=== PATIENT | female | born 1985 | race Hispanic/Latino ===

== ENCOUNTER 2018-05-12 14:52 | Inpatient (IN) | payer MEDICAID ==
[2018-05-12 16:19] LABS: Bacteria,Urine 1+ /HPF (Negative); Bilirubin,Urine NEG (Negative); Blood,Urine NEG (Negative); Color,Urine Yellow (Yellow); Mucus,Urine FEW /HPF; Protein,Urine <15 mg/dL mg/dL (Negative); Urobilinogen,Urine < 2.0 mg/dL (<2.0)
[2018-05-12] MEDS ORDERED: EMLA TP PRN (16:54)
[2018-05-12] MEDS ORDERED: PEPCID IV ONE (16:54)
[2018-05-12] MEDS ORDERED: REGLAN IV ONE (16:54)
[2018-05-12] MEDS ORDERED: BICITRA PO ONE (16:54)
[2018-05-12] MEDS ORDERED: ANCEF/STERILE WATER 2 GM/20 ML 0 GM/0 ML SYRINGE IV ONE (16:58)
[2018-05-12] MEDS ORDERED: REGLAN ONE (16:58)
[2018-05-12] MEDS ORDERED: PITOCin/NS 20 UNIT/1000ML DRIP 40,000 MILLIUNITS/2,000 ML BAG IV ONE (16:58)
[2018-05-12] MEDS ORDERED: ceFAZolin 3 GM in NACL 0.9% 100 ML IV NR (17:00)
[2018-05-12] MEDS ORDERED: PITOCin/NS 20 UNIT/1000ML DRIP 20 UNITS/1,000 ML BAG IV SCH ×2 (17:00→21:09)
[2018-05-12] MEDS ORDERED: LACTATED RINGERS 1,000 ML IV SCH (17:00)
--- NOTE | 2018-05-12 17:03 | History and Physical Report ---
History of Present Illness Date of examination: 05/12/18 Chief complaint: leaking fluid and painful uterine ctx History of present illness: EDC Confirmation: 06/28/2018 Past History : 6 Term Births: 3 Premature Births: 2 Living Children: 4 Para: 5 Mult. Births: 0 Prev : 2 Prev. attempt? success x2+ Aborta: 0 Elect. Ab: 0 Spont. Ab: 0 Ectopics: 0 # 1 Delivery date: 2007 Weeks Gestation: 20 wk? labor: yes Delivery type: Comments: "some genetic problem" # 2 Delivery date: 01/23/2009 Weeks Gestation: 40 labor: no Delivery type: Anesthesia type: epidural Sex: Male weight: 8#5 Name: Kyaw Comments: stat c/s for NRFHT # 3 Delivery date: 07/22/2010 Weeks Gestation: 41 labor: no Delivery type: Anesthesia type: epidural Infant Sex: Female weight: 8#7 Name: Alyssa Comments: Repeat c/s # 4 Delivery date: 07/25/2011 Weeks Gestation: 40 labor: no Delivery type: Anesthesia type: epidural Infant Sex: Female weight: 7#5 Name: Maryann # 5 Delivery date: 02/03/2017 Weeks Gestation: unknown labor: yes Delivery type: Anesthesia type: epidural Sex: Female weight: 6#13 Past Medical History: grand mal seizure disorder, not on medication, unknown when last seizure occured "maybe as a toddler?" abnormal pap in 2007 Past Surgical History: c/s x2 ankle sx- pins in right ankle Past Medical History Surgery (Non-human resources assistant manager): c/s x2 ankle sx- pins in right ankle Abnormal PAP: negative MARCELO Exposure: negative Infertility: negative Uterine Anomaly: negative Uterine Surgery (not C/S): negative Other Gynecologic Problems: negative Family Hx: denies Social Hx: SAHM, lives with fiance and children denies ETOH, druc or tobacco use Infection History Hx of STD: none HIV Risk Eval: low risk Hepatitis B Risk Eval: low risk Personal hx. of genital herpes: no Partner hx. of genital herpes: no Rash, Viral, or Febrile illness since last LMP? no Varicella/Chicken Pox Status: Previous Disease TB Risk: no Genetic History Congenital Heart Defect: Mom: no Dad: no Ara Disease: Mom: no Dad: no Thalassemia Mom: no Dad: no Neural Tube Defect Mom: no Dad: no Down's Syndrome Mom: no Dad: no Nando-Sachs Mom: no Dad: no Sickle Cell Disease/Trait Mom: no Dad: no Hemophilia Mom: no Dad: no Muscular Dystrophy Mom: no Dad: no Cystic Fibrosis Mom: no Dad: no Mcfaddin Chorea Mom: no Dad: no Mental Retardation Mom: no Dad: no Fragile X Mom: no Dad: no Other Genetic/Chromosomal Disorder Mom: no Dad: no Child w/other defect Mom: yes Dad: no Comments: 20 week demise- unknown genetic defect Comments/Counseling: one biological child with ASD one of FOCs children with ASD Enviromental Exposures Enviromental Exposures Reviewed Xray Exposure: no Medication, drug, or alcohol use since LMP: no Chemical/Other Exposure: no Exposure to Cat Liter: no Hx of Parvovirus (Fifth Disease): no Occupational Exposure to Children: none Active Medications (reviewed today): None Past History Past Medical History: other (see HPI) Past Surgical History: other (see HPI) EXHIBIT DISPLAY REPRESENTATIVE History: other (see HPI) Family/Genetic History: other (see HPI) - Obstetrical History Expected Date of Delivery: 06/28/18 Actual Gestation: 33 Week(s) 2 Day(s) : 6 Para: 5 Hx # Term Pregnancies: 3 Number of Pregnancies: 2 Spontaneous Abortions: 0 Induced : 0 Number of Living Children: 4 Medications and Allergies Allergies Allergy/AdvReac Type Severity Reaction Status Date / Time No Known Allergies Allergy Unverified 05/12/18 15:42 Active Meds: Active Medications Citric Acid/Sodium Citrate (Bicitra) 30 ml PO ONCE ONE Stop: 05/12/18 16:55 Famotidine (Pepcid) 20 mg IV ONCE ONE Stop: 05/12/18 16:55 Cefazolin Sodium 3 gm/ Sodium (Chloride) 100 mls @ 100 mls/30 min IV PREOP NR; Protocol Lactated Ringer's (Lactated Ringers) 1,000 mls @ 2,250 mls/hr IV PREOP ALPHONSO Stop: 05/13/18 17:27 Oxytocin/Sodium Chloride (Pitocin/Ns 20 Unit/1000ml Drip) 20 units in 1,000 mls @ 0 mls/hr IV TITR ALPHONSO Lidocaine/Prilocaine (Emla) 1 applic TP ONCE PRN PRN Reason: for coombs catheter insertion Metoclopramide HCl (Reglan) 10 mg IV ONCE ONE Stop: 05/12/18 16:55 Review of Systems All systems: negative - Vital Signs Vital signs: Vital Signs Pulse BP 93 H 99/58 05/12/18 15:31 05/12/18 15:31 Temp Pulse Resp BP Pulse Ox 99.3 F 93 H 18 99/58 05/12/18 15:49 05/12/18 15:31 05/12/18 15:49 05/12/18 15:31 - Physical Exam Breasts: Positive: normal Cardiovascular: Regular rate Lungs: Positive: Clear to auscultation, Normal air movement Abdomen: Positive: normal appearance, soft Genitourinary (Female): Positive: normal external genitalia, normal perenium Vulva: both: normal Vagina: Positive: normal moisture Uterus: Positive: normal size, normal contour Anus/Rectum: Positive: normal perianal skin Extremities: Positive: normal Deep Tendon Reflex Grade: Normal +2 - Obstetrical FHR: category 1 Uterine Contraction Monitor Mode: External Cervical Dilatation: 5.5 Cervical Effacement Percentage: 80 station: -4 Uterine Contraction Frequency (min): 2-4 Uterine Contraction Pattern: Regular Uterine Tone Measurement Phase: Contraction Uterine Contraction Intensity: Mild Results All other labs normal. Assessment and Plan 33y/o @ 33+2 weeks, presented to triage with abd pain and leaking fluid. complicated by obesity and late care @ 25 weeks. EDC 06/28 established by 25wk u/s. Nitrazine +, regular ctx noted on toco, SVE 5-6/80/-4 - unable to palpate BOW during exam. Dr. Anand updated. orders to prepare for c/s. Last food or drink intake this morning. Pre-op orders initiated. NICU and anesthesia aware. - Patient Problems (1) 33 weeks gestation of Current Visit: Yes Status: Acute (2) labor Current Visit: Yes Status: Acute Qualifiers: labor trimester: third trimester labor delivery status: with delivery in third trimester Fetus number: single or unspecified fetus Qualified Code(s): O60.14X0 - labor third trimester with delivery third trimester, not applicable or unspecified (3) Previous section Current Visit: Yes Status: Acute (4) BMI 50.0-59.9, adult Current Visit: Yes Status: Acute (5) Rubella non-immune status, antepartum Current Visit: Yes Status: Acute Plan to address problem: MMR
[2018-05-12 17:33] LABS: Basophils % (Auto) 0.4 % (0.0-1.8); Eosinophils % (Auto) 0.1 % (0.0-4.3); Hematocrit 38.2 % (30.3-42.9); Hemoglobin 12.5 gm/dl (10.1-14.3); Lymphocytes % (Auto) 23.1 % (13.4-35.0); Mean Corpuscular HGB Conc 33 % (30-34); Mean Corpuscular Volume 91 fl (79-97); Monocytes # (Auto) 0.5 K/mm3 (0.0-0.8); Platelet Count 266 K/mm3 (140-440); Red Blood Count 4.18 M/mm3 (3.65-5.03); Red Cell Distribution Width 13.3 % (13.2-15.2)
--- NOTE | 2018-05-12 17:36 | Anesthesia Consultation ---
Anesthesia Consult and Med Hx Date of service: 05/12/18 - Airway Anesthetic Teeth Evaluation: Good ROM Head & Neck: Adequate Mental/Hyoid Distance: Adequate Mallampati Class: Class III Intubation Access Assessment: Possibly Difficult - Pulmonary Exam CTA: Yes - Cardiac Exam Cardiac Exam: RRR - Pre-Operative Health Status ASA Pre-Surgery Classification: ASA3 Proposed Anesthetic Plan: Spinal - Pulmonary Hx Asthma: No - Cardiovascular System Hx Hypertension: No - Central Nervous System Hx Seizures: Yes (as a child) Hx Psychiatric Problems: No - Endocrine Hx Renal Disease: No Hx Hypothyroidism: No Hx Hyperthyroidism: No - Hematic Hx Anemia: No Hx Sickle Cell Disease: No - Other Systems Hx Alcohol Use: No - Additional Comments Anesthesia Medical History Comments: morbid obesity
[2018-05-12] MEDS ORDERED: PHENERGAN PR PRN (17:37)
[2018-05-12] MEDS ORDERED: NARCAN 0.4 MG/1 ML IV PRN ×2 (17:37→21:09)
[2018-05-12] MEDS ORDERED: PHENERGAN PO PRN (17:37)
[2018-05-12] MEDS ORDERED: ZOFRAN IV PRN (17:37)
--- NOTE | 2018-05-12 17:37 | Anesthesia Day of Surgery ---
Anesthesia Day of Surgery - Day of Surgery Patient Examined: Yes Patient H&P Reviewed: Yes Patient is NPO: Yes
[2018-05-12] MEDS ORDERED: ANCEF/STERILE WATER 2 GM/20 ML 4 GM/40 ML SYRINGE IV ONE (17:47)
--- NOTE | 2018-05-12 17:53 | Event Note ---
Date: 05/12/18 Patient in active labor with previous section removed from to deliver by repeat section. Discussed plan with the patient patient agrees to proceed.Patient informed the risks of the surgery include bleeding possibly bleeding heavy enough to require blood transfusion, infection possible damage to bowel bladder ureter. All questions answered. Patient agrees to proceed
[2018-05-12] MEDS ORDERED: SUBLIMAZE ONE (17:54)
[2018-05-12] MEDS ORDERED: SODIUM CHLORIDE FLUSH SYRINGE 10 ML IV NR (18:00)
[2018-05-12] MEDS ORDERED: ANCEF/STERILE WATER 2 GM/20 ML IV ONE ×2 (18:04)
[2018-05-12] MEDS ORDERED: NEO SYNEPHRINE/NS Syringe(OR USE) IV ONE (18:22)
[2018-05-12] MEDS ORDERED: NACL 0.9% IR ONE (18:34)
[2018-05-12] MEDS ORDERED: WATER FOR IRRIG STERILE IR ONE (18:34)
--- NOTE | 2018-05-12 19:32 | Operative Report ---
Operative Report Operative Report: Date of procedure: 05/12/2018 Pre-operative diagnosis: Intrauterine at 33 weeks 2 days with prematur e labor and premature rupture of membranes. Previous section Post-operative diagnosis: Same plus very thin lower uterine segment Procedure name(s):. Repeat Low transverse section Surgeon: Lazaro Anand MD Regional Coordinator: Susanna Carrasco, certified nurse medical malpractice paralegal Anesthesia: Spinal EBL: 700 mL Complications: None Findings: Normal uterus with a very thin lower uterine segment. Amniotic fluid and to be seen through the lower uterine segment. ALL FUTURE PREGNANCIES SHOULD BE DELIVERD BY SECTION. Normal tubes bilaterally. Female infant weight 5 lbs. 0 oz. Apgars 8 at 1 minute and 9 at 5 minutes Specimen(s): Placenta Procedure: The patient was brought to the operating room. A spinal was placed without any complications. She was then placed in left lateral tilt. Prepped and draped in the usual sterile manner. After testing for adequate anesthesia level, a Pfannenstiel incision was made through her previous scar. This incision was taken down to the fascia. The fascia was then nicked in the midline. This incision was extended out laterally with Cade scissors. The fascia was then sharply and bluntly from the underlying rectus muscles. The rectus muscles were bluntly and sharply . The peritoneum was then entered with the flat folding machine operator's fingers. This incision was spread vertically with care not to damage the bladder below. The Ceasar self-retaining tractor was then placed without any difficulty. The bladder flap was then formed sharply and bluntly with Metzenbaum scissors. A transverse incision was made in lower uterine segment. This incision was extended laterally with the operators fingers. The amniotic sac was then entered bluntly with the flat folding machine operator's fingers. The infant was delivered from the vertex position. Bulb suction on the mother's abdomen. Cord was double clamped and cut. The infant was then passed to the nursery personnel who were in attendance. The above scores were given by the nursery personnel. The placenta was then bluntly removed. The uterus was then externalized and wiped clean the remaining products. The findings as noted above and the patient was told during the surgery that FUTURE pregnancies should be delivered by section. The uterine incision was closed in layers. The first incision was closed in a locking manner using 0 Vicryl. This was followed by two imbricating stitch also with 0 Vicryl. This closure was hemostatic. The bladder flap was copiously irrigated and found to be hemostatic. The pelvis was copiously irrigated and found to be hemostatic. The uterus was then placed back to the patient's abdomen. Surgicel was placed along the uterine incision The retractors were removed. The rectus muscles were inspected and found to be hemostatic. The fascia was then closed in a running manner using 0 Vicryl. This incision was hemostatic irrigation Bovie. The skin was reapproximated with 4-0 Vicryl subcuticularly. Dermabond was placed over this incision The patient tolerated procedure well. Her urine was clear. The was admitted to the intensive intensive care unit. The patient was accompanied to recovery room in good condition. Instrument count correct x 3.
[2018-05-12] MEDS ORDERED: SODIUM CHLORIDE FLUSH SYRINGE 10 ML IV PRN (21:09)
[2018-05-12] MEDS ORDERED: LANSINOH TP PRN (21:09)
[2018-05-12] MEDS ORDERED: MILK OF MAGNESIA PO PRN (21:09)
[2018-05-12] MEDS ORDERED: TUCKS PAD TP PRN (21:09)
[2018-05-12] MEDS: TORADOL IV SCH (22:15)
[2018-05-13] MEDS: D5LR 1,000 ML IV SCH ×2 (01:38→09:53)
[2018-05-13] MEDS: NORCO 5/325 PO PRN ×4 (01:49→20:53)
[2018-05-13] MEDS: ANCEF/NS 1 GM/50 ML 1 GM/50 ML BAG IV SCH ×2 (01:49→09:52)
[2018-05-13] MEDS: TORADOL IV SCH ×2 (04:51→09:40)
[2018-05-13 07:44] LABS: Hemoglobin 10.5 gm/dl (10.1-14.3)
--- NOTE | 2018-05-13 08:43 | Progress Note ---
Assessment and Plan POD 1. Patient reports feeling well, denies any complaints. Incision is well approximated, clean, dry, intact, with no s/s of infection. Encouraged patient to keep area clean and dry. Pt reports pain is well controlled. Fundus is firm, ML, U/1, bleeding small. Encouraged patient to continue IS and to ambulate frequently. VSSAF. Awaiting post delivery H&H results. Continue post op pathway. Subjective - Subjective Date of service: 05/13/18 Principal diagnosis: repeat c/s Patient reports: appetite normal, voiding normally, pain well controlled, ambulating normally Objective - Vital Signs Latest vital signs: Vital Signs Temp Pulse Resp BP BP Pulse Ox 05/13/18 04:51 17 05/13/18 02:00 98.5 F 78 18 104/57 100 05/13/18 01:49 18 05/13/18 01:13 78 104/57 100 05/13/18 00:03 88 99 05/12/18 23:54 91/45 05/12/18 21:05 97.6 F 76 18 105/64 100 05/12/18 20:30 97.8 F 73 14 106/54 100 05/12/18 20:15 71 11 L 92/52 100 05/12/18 20:00 74 13 90/47 100 05/12/18 19:45 89 14 100/45 100 05/12/18 19:30 97.8 F 89 16 95/42 100 05/12/18 15:49 99.3 F 18 05/12/18 15:31 93 H 99/58 Intake and Output 05/12/18 05/13/18 05/13/18 23:59 07:59 15:59 Intake Total 2200 Output Total 475 Balance 1725 Intake: IV 2200 Output: Urine 475 Other: Estimated Blood Loss 700 - Exam Breasts: Present: normal Cardiovascular: Present: Regular rate, Normal S1, Normal S2 Lungs: Present: Clear to auscultation Abdomen: Present: normal appearance, soft, normal bowel sounds Uterus: Present: normal, firm Extremities: Present: normal Incision: Present: normal, dry, intact - Labs Labs: Abnormal lab results 05/12/18 Range/Units 17:00 WBC 12.8 H (4.5-11.0) K/mm3 Seg Neutrophils % 72.4 H (40.0-70.0) % Seg Neutrophils # 9.3 H (1.8-7.7) K/mm3
[2018-05-13] MEDS: FEOSOL PO SCH (09:43)
[2018-05-13] MEDS: PRENATAL VITAMIN PO SCH (09:43)
[2018-05-13] MEDS: IBUPROFEN PO PRN ×2 (14:31→20:54)
[2018-05-14] MEDS: NORCO 5/325 PO PRN ×4 (06:45→21:00)
[2018-05-14] MEDS: IBUPROFEN PO PRN ×2 (06:45→21:00)
[2018-05-14] MEDS: PRENATAL VITAMIN PO SCH (10:09)
[2018-05-14] MEDS: FEOSOL PO SCH (10:09)
--- NOTE | 2018-05-14 10:21 | Progress Note ---
Assessment and Plan POD 2. Patient reports feeling well other than increase in incision pain and left side pain after ambulating last night. Incision is well approximated, clean, dry, intact, with no s/s of infection. Encouraged patient to keep area clean and dry. Fundus is firm, ML, U/1, bleeding scant. Encouraged patient to ambulate frequently to relieve any gas pains. Patient reports no IS is available in room for use at this time, will ask nursing staff to provide patient with replacement IS as well as breast pump for patient to provide EBM for in NICU. May continue pain medications as needed, as ordered. VSSAF. Continue post op pathway. Subjective - Subjective Date of service: 05/14/18 Principal diagnosis: repeat c/s Patient reports: appetite normal, voiding normally, pain well controlled (reports some increase in incisional pain and left side pain after ambulating last night), flatus, ambulating normally [place]: in NICU Objective - Vital Signs Latest vital signs: Vital Signs Temp Pulse Resp BP BP Pulse Ox 05/14/18 00:05 76 05/14/18 00:00 98.7 F 16 L 18 108/79 05/13/18 17:35 98.9 F 82 20 111/62 98 Intake and Output 05/13/18 05/14/18 05/14/18 23:59 07:59 15:59 Intake Total 300 Balance 300 Intake: Intake, Free Water 300 - Exam Breasts: Present: normal Cardiovascular: Present: Regular rate, Normal S1, Normal S2 Lungs: Present: Clear to auscultation Abdomen: Present: normal appearance, soft Uterus: Present: normal, firm Extremities: Present: normal Incision: Present: normal, dry, intact
[2018-05-15] MEDS: IBUPROFEN PO PRN ×2 (06:27→18:09)
[2018-05-15] MEDS: NORCO 5/325 PO PRN ×2 (06:27→10:50)
--- NOTE | 2018-05-15 08:06 | Discharge Summary ---
Providers - Providers Date of Admission: 05/12/18 14:53 Date of discharge: 05/15/18 Attending physician: SHANAE LE 05/12/18 21:09 Consult to Bookkeeper Assistant [CONS] Routine Reason For Exam: Primary care physician: SHANAE LE Hospitalization Reason for admission: Labor, repeat c/s Condition: Good Pertinent studies: post delivery H&H 10.5 Procedures: repeat c/s Hospital course: uncomplicated c/s and course Disposition: DC-01 TO HOME OR SELFCARE Core Measure Documentation - Palliative Care Palliative Care/ Comfort Measures: Not Applicable - Core Measures Any of the following diagnoses?: none Exam - Constitutional Vitals: Temp Pulse Resp BP Pulse Ox 97.8 F 82 20 105/58 98 05/15/18 00:00 05/15/18 00:00 05/15/18 00:00 05/15/18 00:00 05/15/18 00:00 General appearance: Present: no acute distress, well-nourished - EENT Eyes: Present: PERRL ENT: hearing intact, clear oral mucosa - Neck Neck: Present: supple, normal ROM - Respiratory Respiratory effort: normal Respiratory: bilateral: CTA - Cardiovascular Heart Sounds: Present: S1 & S2. Absent: rub, click - Extremities Extremities: pulses symmetrical, No edema Peripheral Pulses: within normal limits - Abdominal General gastrointestinal: Present: soft, non-tender, non-distended, normal bowel sounds Female genitourinary: Present: normal - Integumentary Integumentary: Present: clear, warm, dry - Musculoskeletal Musculoskeletal: gait normal, strength equal bilaterally - Psychiatric Psychiatric: appropriate mood/affect, intact judgment & insight - Neurologic Neurologic: CNII-XII intact, moves all extremities Plan Follow up with: SHANAE LE MD [Primary Care Provider] - 7 Days Prescriptions: Ferrous Sulfate [Feosol 325 MG tab] 325 mg PO BID #60 tablet Ibuprofen [Motrin 800 MG tab] 800 mg PO Q6H PRN #30 tablet PRN Reason: Pain oxyCODONE /ACETAMINOPHEN [Percocet 5/325 mg] 1 - 2 tab PO Q4H PRN #30 tablet PRN Reason: Pain, Moderate
--- NOTE | 2018-05-15 08:33 | Progress Note ---
Assessment and Plan POD 3. Patient reports dizziness on ambulation, seeing "little bugs floating around but nothing is really there", blurred vision. DTRs 2+, patient denies ZHONG, denies RUQ pain. VSSAF. PIH labs ordered. Patient and RN report vaginal bleeding has been small to scant. Post op h&h 10.5. Incision is well approximated, healing well, no drainage or signs of infection. Patient still does not have IS in room, asked RN to provide her with one. Patient requesting assistance with using breast pump, RN notified. Will review lab results and f/u to determine discharge. Subjective - Subjective Date of service: 05/15/18 Principal diagnosis: POD 3 repeat c/s Patient reports: appetite normal, voiding normally, dizzy ambulation, pain well controlled, ambulating normally [place]: in NICU Objective - Vital Signs Latest vital signs: Vital Signs Temp Pulse Resp BP Pulse Ox 05/15/18 00:00 97.8 F 82 20 105/58 98 05/14/18 16:46 18 05/14/18 16:20 98.4 F 87 18 101/54 05/14/18 15:46 20 05/14/18 12:30 20 05/14/18 11:30 20 Intake and Output 05/14/18 05/15/18 05/15/18 23:59 07:59 15:59 Intake Total 360 240 Balance 360 240 Intake: Oral 360 240 Other: Total, Intake Amount 360 240 # Voids Void 1 - Exam Breasts: Present: normal Cardiovascular: Present: Regular rate, Normal S1, Normal S2 Lungs: Present: Clear to auscultation Abdomen: Present: normal appearance, soft, normal bowel sounds Uterus: Present: normal, firm Extremities: Present: normal Deep Tendon Reflex Grade: Normal +2 Incision: Present: normal, dry, intact
[2018-05-15 09:46] LABS: Bilirubin,Urine NEG (Negative); Blood,Urine NEG (Negative); Color,Urine Yellow (Yellow); Protein,Urine <15 mg/dL mg/dL (Negative); Urobilinogen,Urine < 2.0 mg/dL (<2.0); WBC,Urine < 1.0 /HPF (0.0-6.0)
[2018-05-15] MEDS: PRENATAL VITAMIN PO SCH (10:51)
[2018-05-15] MEDS: FEOSOL PO SCH ×2 (10:51→12:45)
--- NOTE | 2018-05-15 14:32 | Event Note ---
Date: 05/15/18 Called unit to check status of stat PIH labs ordered this morning as I do not see results available at this time. Spoke with assigned RN who reports she has called for someone to draw them and that the patient is a hard stick. Asked RN to please follow up to get labs drawn as soon as possible as this order was placed approx 6 hours ago and still has not been collected. She reports she will check to see if someone else can draw them.
[2018-05-15 15:22] LABS: Hematocrit 32.5 % (30.3-42.9); Hemoglobin 10.8 gm/dl (10.1-14.3); Mean Corpuscular HGB Conc 33 % (30-34); Mean Corpuscular Volume 92 fl (79-97); Platelet Count 262 K/mm3 (140-440); Red Blood Count 3.52 M/mm3 (3.65-5.03); Red Cell Distribution Width 13.6 % (13.2-15.2)
[2018-05-15 15:35] LABS: Alanine Aminotransferase 6 units/L (7-56); Uric Acid 6.3 mg/dL (3.5-7.6)
--- NOTE | 2018-05-15 16:03 | Discharge Summary ---
Providers - Providers Date of Admission: 05/12/18 14:53 Date of discharge: 05/15/18 Attending physician: SHANAE LE 05/12/18 21:09 Consult to Commercial Lines Manager [CONS] Routine Reason For Exam: Primary care physician: SHANAE LE Hospitalization Reason for admission: PTL, repeat c/s Condition: Good Pertinent studies: PIH labs WNL, post op H&H 12/29 Disposition: DC-01 TO HOME OR SELFCARE Core Measure Documentation - Palliative Care Palliative Care/ Comfort Measures: Not Applicable Exam - Constitutional Vitals: Temp Pulse Resp BP Pulse Ox 98.2 F 91 H 18 121/82 98 05/15/18 07:46 05/15/18 07:46 05/15/18 10:50 05/15/18 07:46 05/15/18 00:00 Plan Follow up with: SHANAE LE MD [Primary Care Provider] - 7 Days Prescriptions: Ferrous Sulfate [Feosol 325 MG tab] 325 mg PO BID #60 tablet Ibuprofen [Motrin 800 MG tab] 800 mg PO Q6H PRN #30 tablet PRN Reason: Pain oxyCODONE /ACETAMINOPHEN [Percocet 5/325 mg] 1 - 2 tab PO Q4H PRN #30 tablet PRN Reason: Pain, Moderate
--- NOTE | 2018-05-15 16:27 | Event Note ---
Date: 05/15/[address] [facility] labs reviewed, WNL. H&H is 10.8/32.5, increased from initial post op draw. VSSAF. RN reports that patient is still c/o dizzy upon ambulation. Patient also voices concern with discharge as baby is in NICU and she [place] hour [place] with limited transportation. Consult with Dr. Moore, will hold discharge at this time and continue to monitor s/s overnight. Will reassess readiness for discharge in AM.
[2018-05-16 02:04] VITALS: BP 105/45
[2018-05-16] MEDS: IBUPROFEN PO PRN ×2 (04:19→11:19)
--- NOTE | 2018-05-16 07:10 | Discharge Summary ---
Providers - Providers Date of Admission: 05/12/18 14:53 Date of discharge: 05/16/18 (pt states she has always had dizziness) Attending physician: SHANAE LE 05/12/18 21:09 Consult to Broadcast Program Director [CONS] Routine Reason For Exam: Primary care physician: SHANAE LE Hospitalization Reason for admission: section, labor Procedure: repeat low transverse Episiotomy: none Laceration: none Incision: normal, dry, intact Other procedures: none complications: none Discharge diagnosis: delivery baby: female Hospital course: pt presented in active labor previous c/s uncomplicated repeat section Pt resting No c/o voiced Pt states she is worried about coming back to see her NB Encouraged pt to be OOB, take a shower and see how she feels. Number to NICU written on her board. Encouraged her to go see her baby in the NICU. VSS FF Scant lochia H&H stable. Doing well s/p repeat c/s with exception of being worried about returning to see her NB P: d/c today with instructions I will schedule her postop visit for her in the [place] office. 05-20-18 @ 1045 Condition at discharge: Good Disposition: DC-01 TO HOME OR SELFCARE - Discharge Diagnoses (1) delivery delivered Status: Acute Comment: Postop appt Wednesday05-20-18 @ 1045 Plan - Discharge Medications Prescriptions: Ferrous Sulfate [Feosol 325 MG tab] 325 mg PO BID #60 tablet Ibuprofen [Motrin 800 MG tab] 800 mg PO Q6H PRN #30 tablet PRN Reason: Pain oxyCODONE /ACETAMINOPHEN [Percocet 5/325 mg] 1 - 2 tab PO Q4H PRN #30 tablet PRN Reason: Pain, Moderate - Provider Discharge Summary Activity: routine, no sex for 6 weeks, no heavy lifting 4 weeks, no strenuous exercise Diet: routine Instructions: routine Additional instructions: [] Smoking cessation referral if applicable(refer to patient education folder for contact #) [] Refer to [facility]'s [facility] Booklet Call your doctor immediately for: * Fever > 100.5 * Heavy vaginal bleeding ( >1 pad per hour) * Severe persistent headache * Shortness of breath * Reddened, hot, painful area to leg or breast * Drainage or odor from incision. * Keep incision clean and dry at all times and follow doctor's instructions regarding bathing/showering - Follow up plan Follow up: SHANAE LE MD [Primary Care Provider] - 05/20/18 10:45 am (Congratulations! Your appointment for your postoperative visit is scheduled for Wednesday at 10:45am in the [place] office. Take medication as prescribed. Call with concerns. [phone])
[2018-05-16] MEDS: PRENATAL VITAMIN PO SCH (11:19)
[2018-05-16] MEDS: FEOSOL PO SCH (11:19)
== END 2018-05-16 18:09 | disposition home or self-care (01) | DRG 765 ==
LOC: TRG 14:52 → APU 14:53 → TRG 18:06 → OB 21:20
PROVIDERS: ADMIT Obstetrics & Gynecology; ATTEND Obstetrics & Gynecology
PROC: 10D00Z1 Extraction of Products of Conception, Low, Open Approach (ICD-10-PCS; principal; 2018-05-12)
DX: O34.211 Maternal care for low transverse scar from previous cesarean delivery (principal); O60.14X0 Preterm labor third trimester with preterm delivery third trimester, not applicable or unspecified; O42.913 Preterm premature rupture of membranes, unspecified as to length of time between rupture and onset of labor, third trimester; O99.214 Obesity complicating childbirth; E66.01 Morbid (severe) obesity due to excess calories; O62.2 Other uterine inertia; Z3A.33 33 weeks gestation of pregnancy; Z37.0 Single live birth
CPT/HCPCS: 36415; 81001; 82565; 83615; 84450; 84460; 84550; 85014; 85018; 85025; 85027; 86592; 86850; 86900; 86901; 88307; G0378; A6250; C1765; J0690; J1885; J2370; J2405; J2590; J2765; J3010; J7120; J7121

== ENCOUNTER 2018-06-02 11:47 | Emergency (ER) | payer MEDICAID ==
--- NOTE | 2018-06-02 11:53 | Emergency Department Report ---
Blank Doc - Documentation Documentation: This is a 33-year-old female that presents with vaginal bleeding. Patient fredy terry had a last month. This initial assessment/diagnostic orders/clinical plan/treatment(s) is/are subject to change based on patient's health status, clinical progression and re- assessment by fellow clinical providers in the ED. Further treatment and workup at subsequent clinical providers discretion. Patient/guardians urged not to elope from the ED as their condition may be serious if not clinically assessed and managed. Initial orders include: 1- Patient sent to [facility] ED for further evaluation and treatment 2- labs 3- UA
[2018-06-02 12:12] LABS: Basophils % (Auto) 0.3 % (0.0-1.8); Eosinophils # (Auto) 0.1 K/mm3 (0.0-0.4); Eosinophils % (Auto) 0.7 % (0.0-4.3); Hematocrit 36.1 % (30.3-42.9); Hemoglobin 12.1 gm/dl (10.1-14.3); Lymphocytes # (Auto) 2.4 K/mm3 (1.2-5.4); Lymphocytes % (Auto) 30.8 % (13.4-35.0); Mean Corpuscular HGB Conc 34 % (30-34); Mean Corpuscular Volume 92 fl (79-97); Monocytes # (Auto) 0.4 K/mm3 (0.0-0.8); Monocytes % (Auto) 5.8 % (0.0-7.3); Platelet Count 313 K/mm3 (140-440); Red Blood Count 3.93 M/mm3 (3.65-5.03)
--- NOTE | 2018-06-02 12:29 | Emergency Department Report ---
ED Female HPI - General Chief complaint: Abdominal Pain Stated complaint: POST /COMPLICATION Time Seen by Provider: 06/02/18 11:52 Source: patient Mode of arrival: Ambulatory Limitations: No Limitations - History of Present Illness Initial comments: Megan is a very pleasant 33-year-old female who is one day status post C- section. For the past months she's had constant vaginal bleeding. She went to the office of Dr. Le [employer]. Walk in appointment was not available. Consequently she was referred to the ED. She denies any abdominal pain. Denies weakness. Denies dizziness. She just wants the bleeding to stop. She is curr ently breast pumping. Her child was born at 33 weeks. The child is still hospitalized. This is Megan's third . Complaint: vaginal bleeding -: Gradual, month(s) (1) Severity: mild Consistency: constant Improves with: none Worsens with: none Are you Now?: No Associated Symptoms: vaginal bleeding - Related Data Previous Rx's Medication Instructions Recorded Last Taken Type Ferrous Sulfate [Feosol 325 MG tab] 325 mg PO BID #60 tablet 05/12/18 Unknown Rx Ibuprofen [Motrin 800 MG tab] 800 mg PO Q6H PRN #30 tablet 05/12/18 Unknown Rx oxyCODONE /ACETAMINOPHEN [Percocet 1 - 2 tab PO Q4H PRN #30 tablet 05/12/18 Unknown Rx 5/325 mg] Allergies Allergy/AdvReac Type Severity Reaction Status Date / Time codeine Allergy Hives Verified 05/15/18 10:59 ED Review of Systems ROS: Stated complaint: POST /COMPLICATION Other details as noted in HPI Comment: All other systems reviewed and negative Constitutional: denies: fever, malaise Cardiovascular: denies: chest pain ED Past Medical Hx - Past Medical History Previous Medical History?: Yes Hx Hypertension: No Hx Diabetes: No Hx Deep Vein Thrombosis: No Hx Renal Disease: No Hx Sickle Cell Disease: No Hx Seizures: Yes (as a child) Hx Asthma: No - Surgical History Additional Surgical History: x3 - Social History Smoking Status: Never Smoker Substance Use Type: None - Medications Home Medications: Home Medications Medication Instructions Recorded Confirmed Last Taken Type Ferrous Sulfate [Feosol 325 MG tab] 325 mg PO BID #60 tablet 05/12/18 Unknown Rx Ibuprofen [Motrin 800 MG tab] 800 mg PO Q6H PRN #30 tablet 05/12/18 Unknown Rx oxyCODONE /ACETAMINOPHEN [Percocet 1 - 2 tab PO Q4H PRN #30 tablet 05/12/18 Unknown Rx 5/325 mg] ED Physical Exam - General Limitations: No Limitations General appearance: alert, in no apparent distress, other (appears well, appears healthy) - Head Head exam: Present: atraumatic, normocephalic - Eye Eye exam: Present: normal appearance - ENT ENT exam: Present: mucous membranes moist - Neck Neck exam: Present: normal inspection, full ROM - Respiratory Respiratory exam: Present: normal lung sounds bilaterally. Absent: respiratory distress, wheezes, rales - Cardiovascular Cardiovascular Exam: Present: regular rate, normal rhythm, normal heart sounds. Absent: systolic murmur, diastolic murmur, rubs, gallop - GI/Abdominal GI/Abdominal exam: Present: soft, normal bowel sounds. Absent: distended, tenderness, rebound - Extremities Exam Extremities exam: Present: normal inspection - Back Exam Back exam: Present: normal inspection - Neurological Exam Neurological exam: Present: alert, oriented X3 - Psychiatric Psychiatric exam: Present: normal affect, normal mood - Skin Skin exam: Present: warm, dry, intact, normal color. Absent: rash ED Course Vital Signs 06/02/18 11:53 Temperature 98.1 F Pulse Rate 77 Respiratory 18 Rate Blood Pressure 131/65 O2 Sat by Pulse 95 Oximetry ED Medical Decision Making - Lab Data Result diagrams: 06/02/18 12:01 - Medical Decision Making Megan presents with bleeding. Appears to be mild with consideration of normal vital signs and normal hemoglobin and hematocrit. Recommended continued RN therapy. Recommended follow-up with Dr. Le. Hemoglobin 12 Crit 36 Critical care attestation.: If time is entered above; I have spent that time in minutes in the direct care of this critically ill patient, excluding procedure time. ED Disposition Clinical Impression: bleeding, Status post Disposition: DC-01 TO HOME OR SELFCARE Is pt being admited?: No Does the pt Need Aspirin: No Condition: Stable Additional Instructions: Your blood counts are normal. Please see Dr. Le next appointment. Referrals: SHANAE LE MD [Staff Physician] - 7-10 days
[2018-06-02 12:34] LABS: Alanine Aminotransferase 9 units/L (7-56); Albumin 3.9 g/dL (3.9-5); BUN/Creatinine Ratio 11; Blood Urea Nitrogen 10 mg/dL (7-17); Hemolysis Index 9
[2018-06-02 12:36] LABS: Bilirubin,Direct < 0.2 mg/dL (0-0.2)
[2018-06-02 13:07] VITALS: BP 112/74
== END 2018-06-02 13:06 | disposition home or self-care (01) ==
LOC: ED 11:47
DX: O72.1 Other immediate postpartum hemorrhage (principal); Z88.6 Allergy status to analgesic agent
CPT/HCPCS: 36415; 80048; 80076; 83690; 84703; 85025